=== PATIENT | female | born 1985 | race American Indian/Alaskan Native ===

== ENCOUNTER 2019-10-21 20:02 | Emergency (ER) | payer SELFPAY ==
[2019-10-21 20:24] VITALS: BP 134/77
--- NOTE | 2019-10-21 20:34 | Emergency Department Report ---
Blank Doc - Documentation Documentation: 34-year-old female that presents with cp and sob. This initial assessment/diagnostic orders/clinical plan/treatment(s) is/are subject to change based on patient's health status, clinical progression and re- assessment by fellow clinical providers in the ED. Further treatment and workup at subsequent clinical providers discretion. Patient/guardians urged not to elope from the ED as their condition may be serious if not clinically assessed and managed. Initial orders include: 1- Patient sent to [facility] for further evaluation and treatment 2- cardiac workup
[2019-10-21 21:11] LABS: Basophils % (Auto) 0.3 % (0.0-1.8); Eosinophils # (Auto) 0.3 K/mm3 (0.0-0.4); Eosinophils % (Auto) 3.3 % (0.0-4.3); Hematocrit 37.5 % (30.3-42.9); Hemoglobin 12.5 gm/dl (10.1-14.3); Lymphocytes # (Auto) 2.7 K/mm3 (1.2-5.4); Lymphocytes % (Auto) 28.6 % (13.4-35.0); Mean Corpuscular HGB Conc 33 % (30-34); Mean Corpuscular Volume 91 fl (79-97); Monocytes # (Auto) 0.7 K/mm3 (0.0-0.8); Monocytes % (Auto) 7.1 % (0.0-7.3); Platelet Count 239 K/mm3 (140-440); Red Blood Count 4.11 M/mm3 (3.65-5.03); Red Cell Distribution Width 14.2 % (13.2-15.2)
[2019-10-21 21:37] LABS: Alanine Aminotransferase 8 units/L (7-56); Albumin 3.7 g/dL (3.9-5); BUN/Creatinine Ratio 14; Blood Urea Nitrogen 11 mg/dL (7-17); Calcium 8.9 mg/dL (8.4-10.2); Hemolysis Index 1
--- NOTE | 2019-10-21 22:27 | XRay Report ---
CHEST 2 VIEWS INDICATION / CLINICAL INFORMATION: Chest Pain. COMPARISON: None available. FINDINGS: SUPPORT DEVICES: None. HEART / MEDIASTINUM: No significant abnormality. LUNGS / PLEURA: No significant pulmonary or pleural abnormality. No pneumothorax. ADDITIONAL FINDINGS: No significant additional findings. IMPRESSION: 1. No acute findings. Signer Name: Anson Ely MD Signed: 10/21/2019 10:22 PM Workstation Name: [id number]
--- NOTE | 2019-10-22 01:08 | Emergency Department Report ---
ED General Adult HPI - General Chief complaint: Dyspnea/Respdistress Stated complaint: CHEST PAIN SOB Time Seen by Provider: 10/21/19 20:33 Source: patient Mode of arrival: Ambulatory Limitations: No Limitations - History of Present Illness Initial comments: Patient is a 34-year-old female presents emergency room with complaints of ongoing right sided chest pain for over a month. She states that also for the last several days she has felt some shortness of breath and had a mild dry cough. She states that she has a history of asthma and uses an albuterol inhaler and nebulizer. She denies any fever, productive cough, leg swelling, hemoptysis. She denies any recent travel, recent surgery, oral hormone use. She denies any past medical history allergies medications. She states that she has IUD. She states she is a non-smoker. She denies any family cardiac history. Severity scale (0 -10): 0 - Related Data Allergies Allergy/AdvReac Type Severity Reaction Status Date / Time No Known Allergies Allergy Unverified 10/21/19 20:23 ED Review of Systems ROS: Stated complaint: CHEST PAIN SOB Other details as noted in HPI Comment: All other systems reviewed and negative ED Past Medical Hx - Past Medical History Previous Medical History?: Yes Hx Asthma: Yes - Surgical History Past Surgical History?: Yes ED Physical Exam - General Limitations: No Limitations General appearance: alert, in no apparent distress - Head Head exam: Present: atraumatic, normocephalic - Eye Eye exam: Present: normal appearance - ENT ENT exam: Present: normal orophraynx, mucous membranes moist, other (pale boggy turbinates) - Respiratory Respiratory exam: Present: normal lung sounds bilaterally. Absent: respiratory distress, wheezes, rales, rhonchi, stridor, chest wall tenderness, accessory muscle use, decreased breath sounds, prolonged expiratory - Cardiovascular Cardiovascular Exam: Present: regular rate, normal rhythm, normal heart sounds. Absent: systolic murmur, diastolic murmur, rubs, gallop - Neurological Exam Neurological exam: Present: alert, oriented X3 - Psychiatric Psychiatric exam: Present: normal affect, normal mood - Skin Skin exam: Present: warm, dry, intact ED Course Vital Signs 10/21/19 10/22/19 20:23 01:24 Temperature 98.2 F Pulse Rate 87 85 Respiratory 18 17 Rate Blood Pressure 134/77 [Right] O2 Sat by Pulse 100 98 Oximetry ED Medical Decision Making - Lab Data Result diagrams: 10/21/19 20:43 10/21/19 20:43 Lab Results 10/21/19 10/21/19 10/21/19 Range/Units 20:43 20:43 20:43 WBC 9.3 (4.5-11.0) K/mm3 RBC 4.11 (3.65-5.03) M/mm3 Hgb 12.5 (10.1-14.3) gm/dl Hct 37.5 (30.3-42.9) % MCV 91 (79-97) fl MCH 31 (28-32) pg MCHC 33 (30-34) % RDW 14.2 (13.2-15.2) % Plt Count 239 (140-440) K/mm3 Lymph % (Auto) 28.6 (13.4-35.0) % [place] % (Auto) 7.1 (0.0-7.3) % Eos % (Auto) 3.3 (0.0-4.3) % Baso % (Auto) 0.3 (0.0-1.8) % Lymph # 2.7 (1.2-5.4) K/mm3 [place] # 0.7 (0.0-0.8) K/mm3 Eos # 0.3 (0.0-0.4) K/mm3 Baso # 0.0 (0.0-0.1) K/mm3 Seg Neutrophils % 60.7 (40.0-70.0) % Seg Neutrophils # 5.7 (1.8-7.7) K/mm3 Sodium 137 (137-145) mmol/L Potassium 3.4 L (3.6-5.0) mmol/L Chloride 99.6 (98-107) mmol/L Carbon Dioxide 27 (22-30) mmol/L Anion Gap 14 mmol/L BUN 11 (7-17) mg/dL Creatinine 0.8 (0.7-1.2) mg/dL Estimated GFR > 60 ml/min BUN/Creatinine Ratio 14 % Glucose 108 H (65-100) mg/dL Calcium 8.9 (8.4-10.2) mg/dL Total Bilirubin 0.30 (0.1-1.2) mg/dL AST 12 (5-40) units/L ALT 8 (7-56) units/L Alkaline Phosphatase 113 (35-129) units/L Troponin T < 0.010 (0.00-0.029) ng/mL Total Protein 7.6 (6.3-8.2) g/dL Albumin 3.7 L (3.9-5) g/dL Albumin/Globulin Ratio 0.9 % HCG, Qual Negative (Negative) - EKG Data EKG shows normal: sinus rhythm, axis, intervals, QRS complexes, ST-T waves Rate: normal - EKG Data 10/22/19 01:11 no stemi - Radiology Data Radiology results: report reviewed CHEST 2 VIEWS INDICATION / CLINICAL INFORMATION: Chest Pain. COMPARISON: None available. FINDINGS: SUPPORT DEVICES: None. HEART / MEDIASTINUM: No significant abnormality. LUNGS / PLEURA: No significant pulmonary or pleural abnormality. No pneumothorax. ADDITIONAL FINDINGS: No significant additional findings. IMPRESSION: 1. No acute findings. Signer Name: Anson Ely MD Signed: 10/21/2019 10:22 PM Workstation Name: [id number] Transcribed By: BC Dictated By: Anson Ely MD Electronically Authenticated By: Anson Ely MD Signed Date/Time: 10/21/192221 DD/ 21 TD/TT: - Medical Decision Making Patient is a 34-year-old female presents emergency room with complaints of ongoing right sided chest pain for over a month. She states that also for the last several days she has felt some shortness of breath and had a mild dry cough. She states that she has a history of asthma and uses an albuterol inhaler and nebulizer. She denies any fever, productive cough, leg swelling, hemoptysis. She denies any recent travel, recent surgery, oral hormone use. She denies any past medical history allergies medications. She states that she has IUD. She states she is a non-smoker. She denies any family cardiac histo ry. Vitals are normal. No abnormality on physical examination as documented in chart. EKG with no signs of STEMI. Labs are normal. Troponin is negative. hCG is negative. Chest x-ray with no acute process. PERC criteria negative for PE. Well score is 0, PE very unlikely. Patient is presenting with atypical chest pains that has been going on for over a month. No signs of acute ischemia or STEMI on EKG and troponin is negative due to this ongoing for over a month the up-to-date medical literature recommends only one set of troponins. KIMANI score is 0, heart score is 1, very low risk for cardiac event. Patient will be referred to primary care doctor and outpatient cardiology. She does have pale boggy turbinates consistent with allergic rhinitis. Advised patient May take Zyrtec or Margie [id number]. May use Flonase nasal spray. May use a humidifier. May alternate Tylenol then ibuprofen every 6-8 hours as needed for discomfort. Follow-up with a telecommunications repairer. Follow-up with a primary care doctor. Return to emergency room immediately for any new or worsening symptoms. - Differential Diagnosis URI, PNA, allergies, PTX, PE, ACS, costochondritis, anxiety, sleep apnea Critical care attestation.: If time is entered above; I have spent that time in minutes in the direct care of this critically ill patient, excluding procedure time. ED Disposition Clinical Impression: Shortness of breath Chest pain Qualifiers: Chest pain type: unspecified Qualified Code(s): R07.9 - Chest pain, unspecified Allergic rhinitis Qualifiers: Allergic rhinitis trigger: unspecified Allergic rhinitis seasonality: unspecified Qualified Code(s): J30.9 - Allergic rhinitis, unspecified Disposition: - TO HOME OR SELFCARE Is pt being admited?: No Does the pt Need Aspirin: No Condition: Stable Instructions: Chest Pain (ED), Dyspnea (ED) Additional Instructions: May take Zyrtec or Margie [id number]. May use Flonase nasal spray. May use a humidifier. May alternate Tylenol then ibuprofen every 6-8 hours as needed for discomfort. Follow-up with a telecommunications repairer. Follow-up with a primary care doctor. Return to emergency room immediately for any new or worsening symptoms. Referrals: JULITA YOON [Staff Physician] - 2-3 Days TIP GIVENS MD [Staff Physician] - 2-3 Days [facility] [Provider Group] - 2-3 Days [facility] [Outside] - 2-3 Days [facility] [Outside] - 2-3 Days Time of Disposition: 01:07 Print Language: PARAGUAYAN
== END 2019-10-22 01:24 | disposition home or self-care (01) ==
LOC: ED 20:02
DX: J30.9 Allergic rhinitis, unspecified (principal); R07.89 Other chest pain; R06.02 Shortness of breath; R05 Cough
CPT/HCPCS: 36415; 71046; 80053; 84484; 84703; 85025; 93005